=== PATIENT | male | born 1940 | race Hispanic/Latino ===

== ENCOUNTER → 2018-10-01 | Outpatient (CLI) | payer OTHER ==
[~2018-10-01] MED LIST: ASCO500T9 PO; ASPI-1197 PO; GLIP2.5T2 PO; LISI2.5T2 PO; METF-527 PO; METO-391 PO; SIMV10TA6 PO; UBID200C18 PO
== END | disposition home or self-care (01) ==
LOC: SHCH 12:43
PROVIDERS: ATTEND Internal Medicine Cardiovascular Disease
DX: I11.9 Hypertensive heart disease without heart failure (principal); Z95.0 Presence of cardiac pacemaker
CPT/HCPCS: 93306

== ENCOUNTER 2021-08-22 18:08 | Inpatient (IN) | payer OTHER ==
[~2021-08-22] VITALS: Ht 167.6 cm; Wt 69.6 kg
[~2021-08-22 18:08] MED LIST changes: +ASCO500T20 PO; -ASCO500T9 PO; +LISI2.5T13 PO; -LISI2.5T2 PO; -SIMV10TA6 PO; +SIMV10TA97 PO
[2021-08-22 18:44] LABS: BASOPHILS % (AUTO) 1.3 % (0.0-5.0); EOSINOPHILS % (AUTO) 1.1 % (0.0-8.0); HEMATOCRIT 37.5 % (42-54); LYMPHOCYTES % (AUTO) 27.5 % (21.0-51.0); MEAN CORPUSCULAR HEMOGLOBIN 29.3 pg (27.0-33.0); MEAN CORPUSCULAR HGB CONC 32.5 g/dL (32.0-36.0); MEAN CORPUSCULAR VOLUME 90.1 fL (79-99); MONOCYTES % (AUTO) 24.1 % (3.0-13.0); NEUTROPHILS % (AUTO) 45.7 % (40.0-77.0); PLATELET COUNT (AUTO) 181 K/uL (130-400); RED BLOOD CELL COUNT(AUTO) 4.16 MIL/uL (4.50-6.20); RED CELL DISTRIBUTION WIDTH 15.9 % (11.0-15.5); WHITE BLOOD COUNT (AUTO) 3.8 K/uL (4.8-10.8)
[2021-08-22 19:16] LABS: CREATININE 1.2 mg/dL (0.5-1.5); POTASSIUM 4.5 mmol/L (3.5-5.1)
[2021-08-22 19:20] LABS: ALBUMIN 3.5 g/dL (3.5-5.0); BILIRUBIN,TOTAL 0.5 mg/dL (0.2-1.0); MAGNESIUM 2.3 mg/dL (1.80-2.40); TOTAL PROTEIN, SERUM 7.3 g/dL (6.0-8.3)
[2021-08-22] MEDS: FUROSEMIDE 40MG VIAL IV SCH (20:55)
[2021-08-22] MEDS: ATORVASTATIN 40 MG TABLET PO SCH (20:55)
[2021-08-22] MEDS: APIXABAN 5 MG TABLET PO SCH (20:55)
[2021-08-23] MEDS ORDERED: ATOR40TA69 PO (02:14)
[2021-08-23] MEDS ORDERED: POTA-10 PO (02:14)
[2021-08-23] MEDS ORDERED: ASCO500T19 PO (02:14)
[2021-08-23] MEDS ORDERED: METO25TA6 PO (02:14)
[2021-08-23] MEDS ORDERED: METO-391 PO (02:14)
[2021-08-23] MEDS ORDERED: AEC81 PO (02:14)
[2021-08-23] MEDS ORDERED: UBID200C18 PO (02:14)
[2021-08-23] MEDS ORDERED: SITA100T12 PO (02:14)
[2021-08-23] MEDS ORDERED: FURO20TA4 PO (02:14)
[2021-08-23] MEDS ORDERED: CHOL100046 PO (02:14)
[2021-08-23] MEDS ORDERED: EMPA10TA PO (02:14)
[2021-08-23] MEDS ORDERED: GLIP5TAB11 PO (02:14)
[2021-08-23] MEDS ORDERED: LACT10SO5 PO (02:14)
[2021-08-23] MEDS ORDERED: APIX5TAB PO (02:14)
[2021-08-23] MEDS ORDERED: VITA1CAP85 PO (02:14)
[2021-08-23] MEDS ORDERED: VITA-164 PO (02:14)
[2021-08-23 07:41] LABS: BASOPHILS % (AUTO) 0.8 % (0.0-5.0); HEMATOCRIT 37.1 % (42-54); LYMPHOCYTES % (AUTO) 29.2 % (21.0-51.0); MEAN CORPUSCULAR HEMOGLOBIN 28.2 pg (27.0-33.0); MEAN CORPUSCULAR HGB CONC 30.5 g/dL (32.0-36.0); MEAN CORPUSCULAR VOLUME 92.5 fL (79-99); MONOCYTES % (AUTO) 28.7 % (3.0-13.0); NEUTROPHILS % (AUTO) 40.3 % (40.0-77.0); PLATELET COUNT (AUTO) 159 K/uL (130-400); RED BLOOD CELL COUNT(AUTO) 4.01 MIL/uL (4.50-6.20); RED CELL DISTRIBUTION WIDTH 16.1 % (11.0-15.5); WHITE BLOOD COUNT (AUTO) 3.8 K/uL (4.8-10.8)
[2021-08-23 07:52] LABS: ALBUMIN 3.2 g/dL (3.5-5.0); BILIRUBIN,TOTAL 0.7 mg/dL (0.2-1.0); CREATININE 1.1 mg/dL (0.5-1.5); POTASSIUM 3.7 mmol/L (3.5-5.1); TOTAL PROTEIN, SERUM 6.7 g/dL (6.0-8.3)
[2021-08-23] MEDS: APIXABAN 5 MG TABLET PO SCH ×2 (08:48→19:37)
[2021-08-23] MEDS: FUROSEMIDE 40MG VIAL IV SCH (08:48)
[2021-08-23] MEDS: POTASSIUM CHLORIDE 10MEQ SR TAB PO SCH (08:49)
[2021-08-23] MEDS: FUROSEMIDE 20MG VIAL IV SCH ×2 (09:00→19:37)
[2021-08-23] MEDS: SPIRONOLACTONE 25 MG TAB PO SCH (09:26)
[2021-08-23] MEDS: CARVEDILOL 3.125 MG TABLET PO SCH ×2 (09:27→19:37)
[2021-08-23 19:05] VITALS: BP 137/76
[2021-08-23] MEDS: ATORVASTATIN 40 MG TABLET PO SCH (19:37)
[2021-08-23] MEDS ORDERED: SACUBITRIL/VALSARTAN 1 EACH TABLET PO SCH (21:00)
[2021-08-23 23:41] VITALS: BP 139/88
[2021-08-24 05:24] VITALS: BP 119/78
[2021-08-24 06:40] LABS: CREATININE 1.1 mg/dL (0.5-1.5); MAGNESIUM 2.1 mg/dL (1.80-2.40); POTASSIUM 4.1 mmol/L (3.5-5.1); THYROID STIMULATING HORMONE 4.12 uIU/mL (0.36-3.74)
[2021-08-24 08:19] VITALS: BP 120/66
[2021-08-24] MEDS: CARVEDILOL 3.125 MG TABLET PO SCH ×2 (09:12→20:26)
[2021-08-24] MEDS: SPIRONOLACTONE 25 MG TAB PO SCH (09:12)
[2021-08-24] MEDS: POTASSIUM CHLORIDE 10MEQ SR TAB PO SCH (09:13)
[2021-08-24] MEDS: APIXABAN 5 MG TABLET PO SCH ×2 (09:13→20:25)
[2021-08-24] MEDS: FUROSEMIDE 20MG VIAL IV SCH (09:14)
[2021-08-24] MEDS ORDERED: SACUBITRIL/VALSARTAN 1 EACH TABLET PO SCH ×2 (10:30)
[2021-08-24] MEDS: SACUBITRIL/VALSARTAN 1 EACH TABLET PO SCH ×2 (10:35→20:25)
[2021-08-24 10:51] VITALS: BP 118/67
[2021-08-24 16:36] VITALS: BP 129/54
[2021-08-24] MEDS: FUROSEMIDE 40 MG TABLET PO SCH (17:25)
[2021-08-24] MEDS: ATORVASTATIN 40 MG TABLET PO SCH (20:25)
[2021-08-24 20:30] VITALS: BP 124/73
[2021-08-24 23:18] VITALS: BP 120/67
[2021-08-25 05:22] VITALS: BP 87/55
[2021-08-25 06:07] VITALS: BP 118/70
[2021-08-25 07:30] VITALS: BP 115/65
[2021-08-25] MEDS: POTASSIUM CHLORIDE 10MEQ SR TAB PO SCH (09:32)
[2021-08-25] MEDS: FUROSEMIDE 40 MG TABLET PO SCH ×2 (09:32→17:06)
[2021-08-25] MEDS: SPIRONOLACTONE 25 MG TAB PO SCH (09:32)
[2021-08-25] MEDS: SACUBITRIL/VALSARTAN 1 EACH TABLET PO SCH (09:32)
[2021-08-25] MEDS: CARVEDILOL 3.125 MG TABLET PO SCH (09:33)
[2021-08-25] MEDS: APIXABAN 5 MG TABLET PO SCH (09:33)
[2021-08-25 11:00] VITALS: BP 135/68
[2021-08-25 16:00] VITALS: BP 117/59
== END 2021-08-25 18:45 | disposition home or self-care (01) | DRG 291 ==
LOC: EDH 18:08 → EDHIP 18:09 → 3DH 08-23 18:46
PROVIDERS: ADMIT Internal Medicine; ATTEND Internal Medicine
DX: I13.0 Hypertensive heart and chronic kidney disease with heart failure and stage 1 through stage 4 chronic kidney disease, or unspecified chronic kidney disease (principal); I50.43 Acute on chronic combined systolic (congestive) and diastolic (congestive) heart failure; R18.8 Other ascites; J81.1 Chronic pulmonary edema; C16.9 Malignant neoplasm of stomach, unspecified; E11.51 Type 2 diabetes mellitus with diabetic peripheral angiopathy without gangrene; I48.0 Paroxysmal atrial fibrillation; Z20.822 Contact with and (suspected) exposure to COVID-19; D70.9 Neutropenia, unspecified; I25.10 Atherosclerotic heart disease of native coronary artery without angina pectoris; I25.5 Ischemic cardiomyopathy; E78.2 Mixed hyperlipidemia; I50.82 Biventricular heart failure; D64.9 Anemia, unspecified; N18.9 Chronic kidney disease, unspecified; E11.22 Type 2 diabetes mellitus with diabetic chronic kidney disease; R62.7 Adult failure to thrive; Z68.24 Body mass index [BMI] 24.0-24.9, adult; Z95.1 Presence of aortocoronary bypass graft; Z95.810 Presence of automatic (implantable) cardiac defibrillator; Z88.8 Allergy status to other drugs, medicaments and biological substances
CPT/HCPCS: 36415; 71045; 80048; 80053; 80061; 82948; 83735; 83880; 84443; 84484; 85025; 87635; 93005; G0378; J1940

== ENCOUNTER 2021-09-27 20:26 | Inpatient (IN) | payer OTHER ==
[~2021-09-27] VITALS: Ht 167.6 cm; Wt 79.4 kg
[~2021-09-27 20:26] MED LIST changes: +AEC81 PO; +APIX5TAB PO; +ASCO500T19 PO; -ASPI-1197 PO; +ATOR40TA69 PO; +CHOL100046 PO; +EMPA10TA PO; -GLIP2.5T2 PO; +GLIP5TAB11 PO; +LACT10SO5 PO; -LISI2.5T13 PO; -METF-527 PO; -METO-391 PO; +POTA-10 PO; -SIMV10TA97 PO; +SITA100T12 PO; +VITA-164 PO; +VITA1CAP85 PO
[2021-09-27 21:18] LABS: BASOPHILS % (AUTO) 0.4 % (0.0-5.0); HEMATOCRIT 34.2 % (42-54); LYMPHOCYTES % (AUTO) 18.3 % (21.0-51.0); MEAN CORPUSCULAR HEMOGLOBIN 28.7 pg (27.0-33.0); MEAN CORPUSCULAR VOLUME 86.8 fL (79-99); MONOCYTES % (AUTO) 1.3 % (3.0-13.0); NEUTROPHILS % (AUTO) 79.1 % (40.0-77.0); PLATELET COUNT (AUTO) 98 K/uL (130-400); RED BLOOD CELL COUNT(AUTO) 3.94 MIL/uL (4.50-6.20); RED CELL DISTRIBUTION WIDTH 15.9 % (11.0-15.5); WHITE BLOOD COUNT (AUTO) 2.3 K/uL (4.8-10.8)
[2021-09-27] MEDS ORDERED: ACETAMINOPHEN 500 MG TABLET ONE (21:24)
[2021-09-27 21:28] LABS: CARBON DIOXIDE 25 mmol/L (21-32); CHLORIDE 101 mmol/L (101-111); CREATININE 1.6 mg/dL (0.5-1.5); GLOMERULAR FILTR. RATE CALC 44 mL/min (>60); GLUCOSE,RANDOM 132 mg/dL (70-105); POTASSIUM 3.3 mmol/L (3.5-5.1); SODIUM SERUM 137 mmol/L (136-145); UREA NITROGEN, BLOOD 30 mg/dL (7-18)
[2021-09-27] MEDS ORDERED: ONDANSETRON 4MG INJ ONE (21:31)
[2021-09-27 21:32] LABS: ALANINE AMINOTRANSFERASE 301 U/L (12-78); ALBUMIN 3.1 g/dL (3.5-5.0); ASPARTATE AMINOTRANSFERASE 404 U/L (10-37); BILIRUBIN,TOTAL 4.4 mg/dL (0.2-1.0); TOTAL PROTEIN, SERUM 6.5 g/dL (6.0-8.3)
[2021-09-27 21:33] LABS: LIPASE < 50 U/L (114-286)
[2021-09-27 21:39] LABS: B-TYPE NATRIURETIC PEPTIDE 1690 pg/mL (0-100)
[2021-09-27 21:51] LABS: BAND NEUTROPHILS % (MANUAL) 30 % (0-2); LYMPHOCYTES % (MANUAL) 15 % (22-44); MONOCYTES % (MANUAL) 1 % (2-9); REACTIVE LYMPHOCYTES 2 % (0-0); SEGMENTED NEUTROPHILS % 52 % (40-70)
[2021-09-27 21:52] LABS: MAN.DIFF COMMENT-IMPRESSION MANUAL DIFFERENTIAL
[2021-09-27] MEDS ORDERED: 0.9%NACL 1000ML 1,000 ML IV ONE (22:00)
[2021-09-27] MEDS ORDERED: ONDANSETRON 4MG INJ IVP ONE (22:00)
[2021-09-27] MEDS ORDERED: ZOSYN 3.375GM +NS 50ML IV ONE (22:30)
[2021-09-27 22:36] LABS: APPEARANCE,URINE CLEAR (CLEAR); BILIRUBIN,URINE SMALL (NEGATIVE); COLOR,URINE YELLOW (YELLOW); GLUCOSE, URINE (UA) NEGATIVE (NEGATIVE); KETONES,URINE NEGATIVE (NEGATIVE); LEUKOCYTE ESTERASE ,URINE NEGATIVE (NEGATIVE); NITRATE,URINE NEGATIVE (NEGATIVE); OCCULT BLOOD,URINE TRACE-INTACT (NEGATIVE); PROTEIN,URINE 100 mg/dL (NEGATIVE)
[2021-09-27 22:46] LABS: RBC,URINE 0-1 /HPF (0-1)
[2021-09-27 22:47] LABS: BACTERIA,URINE Rare /HPF (None Seen); SQUAMOUS EPITHELIAL CELL,UR Few /HPF (0-2)
[2021-09-27 22:49] LABS: TRANSITIONAL EPI CELLS,URINE Few /HPF (None Seen)
[2021-09-28] VITALS (37 sets, daily range): BP systolic 90–136; BP diastolic 44–70
[2021-09-28] MEDS ORDERED: ACETAMINOPHEN 650 MG SUPPOSITORY RC ONE
[2021-09-28] MEDS ORDERED: VANCOMYCIN PROTOCOL PER PHARMACY IV SCH
[2021-09-28] MEDS ORDERED: IPRATROPIUM/ALBUTEROL SULFATE 3 ML SOLUTION IH PRN
[2021-09-28] MEDS ORDERED: ACETAMINOPHEN 325 MG TAB PO PRN
[2021-09-28] MEDS ORDERED: CLONIDINE HCL 0.1 MG TABLET PO PRN
[2021-09-28] MEDS ORDERED: ACETAMINOPHEN 650 MG SUPPOSITORY RC PRN
[2021-09-28] MEDS ORDERED: ONDANSETRON 4MG INJ IVP PRN
[2021-09-28] MEDS ORDERED: LACTULOSE 20 GM/30 ML UDCUP PO PRN
[2021-09-28 00:05] LABS: MAGNESIUM 1.7 mg/dL (1.80-2.40); PHOSPHORUS 1.6 mg/dL (2.5-4.9)
[2021-09-28] MEDS ORDERED: VANCOMYCIN 1G/250ML KIT 250 ML IV ONE (00:30)
[2021-09-28] MEDS: ZOSYN 3.375GM +NS 50ML IV SCH ×3 (00:50→15:43)
[2021-09-28] MEDS: LACTATED RINGERS 1000ML 1,000 ML IV SCH ×4 (00:50→20:35)
[2021-09-28] MEDS ORDERED: NOREPINEPHRIN 4MG/NS 250ML 250 ML IV ONE (02:02)
[2021-09-28 02:55] LABS: ABG HCO3 19.3 mmol/L (21.0-28.0); ABG OXYGEN SATURATION 97.2 % (95.0-99.0); ABG PCO2 29 mmHg (35-48)
[2021-09-28] MEDS ORDERED: DEXTROSE 50%-WATER 50 ML DISP.SYRIN IV ONE (02:59)
[2021-09-28] MEDS ORDERED: POTASSIUM CHLORIDE 10MEQ/100ML 100 ML IV PRN (03:00)
[2021-09-28] MEDS ORDERED: MAGNESIUM 2GM PREMIX 50ML 50 ML IV SCH (03:00)
[2021-09-28] MEDS ORDERED: POTASSIUM PHOS 15 mMOL+NS250ML 250 ML IV PRN (03:00)
[2021-09-28] MEDS ORDERED: DEXTROSE 50%-WATER 50 ML DISP.SYRIN IV PRN (03:00)
[2021-09-28] MEDS ORDERED: NOREPINEPHRINE 4MG/NS 250ML IV SCH (03:00)
[2021-09-28] MEDS ORDERED: GLUCAGON 1MG KIT 1 MG ML IM PRN (03:00)
[2021-09-28] MEDS ORDERED: POTASSIUM CHLORIDE 10% ELIXIR 20 MEQ/15 ML UDCUP PO PRN (03:00)
[2021-09-28] MEDS ORDERED: LIDOCAINE HCL-MPF 1% 2ML VIAL IV PRN ×2 (03:00)
[2021-09-28] MEDS: HYDROCORTISONE SOD SUCCINATE 100 MG/2 ML VIAL IV SCH ×4 (03:00→20:34)
[2021-09-28] MEDS ORDERED: HYDROCORTISONE SOD SUCCINATE 100 MG/2 ML VIAL IV ONE (03:00)
[2021-09-28] MEDS ORDERED: SODIUM BICARB 50MEQ 50ML VIAL IV STA (03:04)
[2021-09-28 05:29] LABS: BASOPHILS % (AUTO) 0.5 % (0.0-5.0); LYMPHOCYTES % (AUTO) 3.1 % (21.0-51.0); MEAN CORPUSCULAR HEMOGLOBIN 28.1 pg (27.0-33.0); MEAN CORPUSCULAR HGB CONC 32.6 g/dL (32.0-36.0); MEAN CORPUSCULAR VOLUME 86.1 fL (79-99); MONOCYTES % (AUTO) 1.6 % (3.0-13.0); NEUTROPHILS % (AUTO) 93.7 % (40.0-77.0); PLATELET COUNT (AUTO) 77 K/uL (130-400); RED BLOOD CELL COUNT(AUTO) 3.95 MIL/uL (4.50-6.20); RED CELL DISTRIBUTION WIDTH 16.4 % (11.0-15.5); WHITE BLOOD COUNT (AUTO) 5.5 K/uL (4.8-10.8)
[2021-09-28] MEDS: INSULIN HUMULIN R 100 UNIT/ML 3ML SQ SCH ×3 (06:00→18:00)
[2021-09-28 06:19] LABS: ALBUMIN 2.7 g/dL (3.5-5.0); BILIRUBIN,DIRECT 3.8 mg/dL (0.0-0.3); CREATININE 2.3 mg/dL (0.5-1.5); MAGNESIUM 1.6 mg/dL (1.80-2.40); PHOSPHORUS 2.9 mg/dL (2.5-4.9); POTASSIUM 3.1 mmol/L (3.5-5.1); TOTAL PROTEIN, SERUM 5.7 g/dL (6.0-8.3)
[2021-09-28] MEDS: DEXTROSE 10%-WATER 1,000 ML IV SCH (06:37)
[2021-09-28 07:03] LABS: ABG BASE EXCESS -3.8 mmol/L (-2.0-3.0); ABG HCO3 21.1 mmol/L (21.0-28.0); ABG OXYGEN SATURATION 97.5 % (95.0-99.0); ABG PCO2 38 mmHg (35-48)
[2021-09-28] MEDS: POTASSIUM CHLORIDE 10MEQ/100ML 100 ML IV PRN ×2 (08:37→15:43)
[2021-09-28] MEDS: POLYETHYLENE GLYCOL 3350 17 GM POWD.PACK PO SCH (08:38)
[2021-09-28] MEDS: ENOXAPARIN SODIUM 40 MG/0.4 ML SYRINGE SQ SCH (08:38)
[2021-09-28] MEDS: PANTOPRAZOLE 40 MG TAB DR PO SCH (08:38)
[2021-09-28] MEDS ORDERED: FURO20TA4 PO (11:21)
[2021-09-28] MEDS ORDERED: LISI5TAB21 PO (11:21)
[2021-09-28] MEDS ORDERED: CARV3.12 PO (11:21)
[2021-09-28] MEDS: VANCOMYCIN 1G/250ML KIT 250 ML IV SCH (20:22)
[2021-09-29] VITALS (22 sets, daily range): BP systolic 92–120; BP diastolic 47–65
[2021-09-29] MEDS: ZOSYN 3.375GM +NS 50ML IV SCH ×3 (00:26→17:16)
[2021-09-29] MEDS: DEXTROSE 10%-WATER 1,000 ML IV SCH (00:27)
[2021-09-29] MEDS: HYDROCORTISONE SOD SUCCINATE 100 MG/2 ML VIAL IV SCH ×4 (03:41→21:44)
[2021-09-29 03:49] LABS: HEMATOCRIT 31.6 % (42-54); MEAN CORPUSCULAR HEMOGLOBIN 28.7 pg (27.0-33.0); MEAN CORPUSCULAR HGB CONC 33.5 g/dL (32.0-36.0); MEAN CORPUSCULAR VOLUME 85.6 fL (79-99); PLATELET COUNT (AUTO) 47 K/uL (130-400); RED BLOOD CELL COUNT(AUTO) 3.69 MIL/uL (4.50-6.20); RED CELL DISTRIBUTION WIDTH 16.5 % (11.0-15.5); WHITE BLOOD COUNT (AUTO) 12.3 K/uL (4.8-10.8)
[2021-09-29 04:02] LABS: CREATININE 2.5 mg/dL (0.5-1.5); POTASSIUM 4.3 mmol/L (3.5-5.1)
[2021-09-29] MEDS: INSULIN HUMULIN R 100 UNIT/ML 3ML SQ SCH ×4 (05:55→17:19)
[2021-09-29] MEDS: LACTATED RINGERS 1000ML 1,000 ML IV SCH ×2 (08:00→17:17)
[2021-09-29] MEDS: POLYETHYLENE GLYCOL 3350 17 GM POWD.PACK PO SCH ×2 (08:45→09:00)
[2021-09-29] MEDS: PANTOPRAZOLE 40 MG TAB DR PO SCH (08:45)
[2021-09-29] MEDS: ENOXAPARIN SODIUM 40 MG/0.4 ML SYRINGE SQ SCH (08:54)
[2021-09-29] MEDS: VANCOMYCIN 1G/250ML KIT 250 ML IV SCH (21:45)
[2021-09-30] MEDS: ZOSYN 3.375GM +NS 50ML IV SCH ×4 (01:02→23:56)
[2021-09-30 03:33] VITALS: BP 104/56
[2021-09-30] MEDS: HYDROCORTISONE SOD SUCCINATE 100 MG/2 ML VIAL IV SCH ×4 (04:29→21:48)
[2021-09-30] MEDS ORDERED: LORAZEPAM 1 MG TABLET ONE (04:37)
[2021-09-30 05:39] LABS: BASOPHILS % (AUTO) 0.6 % (0.0-5.0); HEMATOCRIT 34.7 % (42-54); LYMPHOCYTES % (AUTO) 3.5 % (21.0-51.0); MEAN CORPUSCULAR HEMOGLOBIN 28.1 pg (27.0-33.0); MEAN CORPUSCULAR HGB CONC 33.1 g/dL (32.0-36.0); MEAN CORPUSCULAR VOLUME 84.8 fL (79-99); MONOCYTES % (AUTO) 4.9 % (3.0-13.0); PLATELET COUNT (AUTO) 52 K/uL (130-400); RED BLOOD CELL COUNT(AUTO) 4.09 MIL/uL (4.50-6.20); RED CELL DISTRIBUTION WIDTH 16.7 % (11.0-15.5); WHITE BLOOD COUNT (AUTO) 10.8 K/uL (4.8-10.8)
[2021-09-30 05:49] LABS: CARBON DIOXIDE 23 mmol/L (21-32); CHLORIDE 102 mmol/L (101-111); CREATININE 2.5 mg/dL (0.5-1.5); GLOMERULAR FILTR. RATE CALC 27 mL/min (>60); GLUCOSE,RANDOM 183 mg/dL (70-105); POTASSIUM 3.5 mmol/L (3.5-5.1); SODIUM SERUM 137 mmol/L (136-145); UREA NITROGEN, BLOOD 48 mg/dL (7-18)
[2021-09-30 06:01] LABS: ALANINE AMINOTRANSFERASE 132 U/L (12-78); ALBUMIN 1.9 g/dL (3.5-5.0); ASPARTATE AMINOTRANSFERASE 86 U/L (10-37); BILIRUBIN,TOTAL 4.7 mg/dL (0.2-1.0); THYROID STIMULATING HORMONE 1.92 uIU/mL (0.36-3.74); TOTAL PROTEIN, SERUM 5.2 g/dL (6.0-8.3)
[2021-09-30 06:02] LABS: AMMONIA < 10 umol/L (11-32)
[2021-09-30] MEDS: INSULIN HUMULIN R 100 UNIT/ML 3ML SQ SCH ×5 (07:30→21:49)
[2021-09-30 08:06] VITALS: BP 102/57
[2021-09-30] MEDS: ENOXAPARIN SODIUM 40 MG/0.4 ML SYRINGE SQ SCH (09:00)
[2021-09-30] MEDS: PANTOPRAZOLE 40 MG TAB DR PO SCH (10:21)
[2021-09-30] MEDS: POLYETHYLENE GLYCOL 3350 17 GM POWD.PACK PO SCH (10:21)
[2021-09-30] MEDS: LACTATED RINGERS 1000ML 1,000 ML IV SCH ×3 (10:23→16:00)
[2021-09-30 11:11] VITALS: BP 104/56
[2021-09-30 16:15] VITALS: BP 112/52
[2021-09-30 19:35] VITALS: BP 115/59
[2021-09-30] MEDS ORDERED: VANCOMYCIN 750MG 750 MG in 0.9% NACL 250ML 250 ML IVPB SCH (20:00)
[2021-09-30] MEDS ORDERED: VANCOMYCIN 750MG VIAL IVPB SCH (20:00)
[2021-09-30 23:21] VITALS: BP 133/75
[2021-10-01] MEDS: HYDROCORTISONE SOD SUCCINATE 100 MG/2 ML VIAL IV SCH ×4 (02:46→21:58)
[2021-10-01 03:01] VITALS: BP 84/57
[2021-10-01 04:20] LABS: BASOPHILS % (AUTO) 0.2 % (0.0-5.0); HEMATOCRIT 32.6 % (42-54); MEAN CORPUSCULAR HEMOGLOBIN 28.2 pg (27.0-33.0); MEAN CORPUSCULAR VOLUME 82.7 fL (79-99); MONOCYTES % (AUTO) 7.3 % (3.0-13.0); NEUTROPHILS % (AUTO) 86.1 % (40.0-77.0); NUCLEATED RED BLOOD CELLS 0.4 % (0.0-0.19); PLATELET COUNT (AUTO) 45 K/uL (130-400); RED BLOOD CELL COUNT(AUTO) 3.94 MIL/uL (4.50-6.20); RED CELL DISTRIBUTION WIDTH 16.1 % (11.0-15.5); WHITE BLOOD COUNT (AUTO) 11.3 K/uL (4.8-10.8)
[2021-10-01 04:40] LABS: ALBUMIN 1.7 g/dL (3.5-5.0); BILIRUBIN,TOTAL 2.6 mg/dL (0.2-1.0); CREATININE 2.7 mg/dL (0.5-1.5); POTASSIUM 3.3 mmol/L (3.5-5.1); TOTAL PROTEIN, SERUM 4.8 g/dL (6.0-8.3)
[2021-10-01] MEDS: INSULIN HUMULIN R 100 UNIT/ML 3ML SQ SCH ×4 (07:30→22:07)
[2021-10-01 08:00] VITALS: BP 107/48
[2021-10-01] MEDS: ZOSYN 3.375GM +NS 50ML IV SCH ×2 (08:00→15:33)
[2021-10-01] MEDS: PANTOPRAZOLE 40 MG TAB DR PO SCH (09:00)
[2021-10-01] MEDS: POLYETHYLENE GLYCOL 3350 17 GM POWD.PACK PO SCH (11:06)
[2021-10-01] MEDS: ENOXAPARIN SODIUM 40 MG/0.4 ML SYRINGE SQ SCH (11:08)
[2021-10-01 11:34] VITALS: BP 111/47
[2021-10-01] MEDS: KCL 20 MEQ ERTAB PO PRN (16:09)
[2021-10-01 16:31] VITALS: BP 141/67
[2021-10-01] MEDS ORDERED: BENZONATATE 100 MG CAPSULE PO PRN (20:00)
[2021-10-01 20:16] VITALS: BP 130/59
[2021-10-01 23:23] VITALS: BP 138/63
[2021-10-02] VITALS (7 sets, daily range): BP systolic 122–142; BP diastolic 62–85
[2021-10-02] MEDS: ZOSYN 3.375GM +NS 50ML IV SCH ×4 (00:59→23:09)
[2021-10-02] MEDS: HYDROCORTISONE SOD SUCCINATE 100 MG/2 ML VIAL IV SCH ×4 (03:00→23:10)
[2021-10-02 04:35] LABS: HEMATOCRIT 32.9 % (42-54); MEAN CORPUSCULAR HEMOGLOBIN 27.8 pg (27.0-33.0); MEAN CORPUSCULAR HGB CONC 33.7 g/dL (32.0-36.0); MEAN CORPUSCULAR VOLUME 82.5 fL (79-99); NUCLEATED RED BLOOD CELLS 0.7 % (0.0-0.19); PLATELET COUNT (AUTO) 58 K/uL (130-400); RED BLOOD CELL COUNT(AUTO) 3.99 MIL/uL (4.50-6.20); RED CELL DISTRIBUTION WIDTH 16.5 % (11.0-15.5); WHITE BLOOD COUNT (AUTO) 8.6 K/uL (4.8-10.8)
[2021-10-02 04:47] LABS: CREATININE 2.9 mg/dL (0.5-1.5); POTASSIUM 3.6 mmol/L (3.5-5.1)
[2021-10-02] MEDS: INSULIN HUMULIN R 100 UNIT/ML 3ML SQ SCH ×4 (07:42→20:16)
[2021-10-02] MEDS: POLYETHYLENE GLYCOL 3350 17 GM POWD.PACK PO SCH (10:30)
[2021-10-02] MEDS: PANTOPRAZOLE 40 MG TAB DR PO SCH (10:30)
[2021-10-02] MEDS: GUAIFENESIN-DM 200/20 MG 10 ML PO PRN (15:32)
[2021-10-03 04:17] VITALS: BP 131/63
[2021-10-03 04:59] LABS: HEMATOCRIT 32.8 % (42-54); MEAN CORPUSCULAR HEMOGLOBIN 28.6 pg (27.0-33.0); MEAN CORPUSCULAR HGB CONC 34.8 g/dL (32.0-36.0); MEAN CORPUSCULAR VOLUME 82.2 fL (79-99); NUCLEATED RED BLOOD CELLS 0.6 % (0.0-0.19); PLATELET COUNT (AUTO) 62 K/uL (130-400); RED BLOOD CELL COUNT(AUTO) 3.99 MIL/uL (4.50-6.20); RED CELL DISTRIBUTION WIDTH 16.3 % (11.0-15.5)
[2021-10-03 05:15] LABS: CREATININE 2.9 mg/dL (0.5-1.5); POTASSIUM 3.3 mmol/L (3.5-5.1)
[2021-10-03] MEDS: KCL 20 MEQ ERTAB PO PRN ×3 (05:53→10:30)
[2021-10-03] MEDS: INSULIN HUMULIN R 100 UNIT/ML 3ML SQ SCH ×4 (06:05→20:58)
[2021-10-03] MEDS: HYDROCORTISONE SOD SUCCINATE 100 MG/2 ML VIAL IV SCH (06:06)
[2021-10-03 07:30] VITALS: BP 124/63
[2021-10-03] MEDS: PANTOPRAZOLE 40 MG TAB DR PO SCH (10:20)
[2021-10-03] MEDS: GUAIFENESIN-DM 200/20 MG 10 ML PO PRN (10:20)
[2021-10-03] MEDS: POLYETHYLENE GLYCOL 3350 17 GM POWD.PACK PO SCH (10:20)
[2021-10-03] MEDS: ZOSYN 3.375GM +NS 50ML IV SCH (10:20)
[2021-10-03 11:00] VITALS: BP 128/60
[2021-10-03] MEDS: CEFTRIAXONE 1G VIAL IVP SCH (14:00)
[2021-10-03] MEDS: 0.9%NACL 1000ML 1,000 ML IV SCH (14:00)
[2021-10-03 14:32] LABS: % IRON SATURATION 37.8 % (30-44)
[2021-10-03 16:00] VITALS: BP 135/67
[2021-10-03 19:00] VITALS: BP 109/64
[2021-10-03] MEDS ORDERED: ZOSYN 3.375GM +NS 50ML IV SCH (21:00)
[2021-10-04] VITALS: BP 146/58
[2021-10-04 04:00] VITALS: BP 130/58
[2021-10-04 04:21] LABS: BASOPHILS % (AUTO) 0.9 % (0.0-5.0); EOSINOPHILS % (AUTO) 0.1 % (0.0-8.0); HEMATOCRIT 34.2 % (42-54); LYMPHOCYTES % (AUTO) 11.4 % (21.0-51.0); MEAN CORPUSCULAR HEMOGLOBIN 28.2 pg (27.0-33.0); MEAN CORPUSCULAR HGB CONC 33.9 g/dL (32.0-36.0); MONOCYTES % (AUTO) 22.3 % (3.0-13.0); NEUTROPHILS % (AUTO) 58.9 % (40.0-77.0); NUCLEATED RED BLOOD CELLS 0.9 % (0.0-0.19); PLATELET COUNT (AUTO) 103 K/uL (130-400); RED BLOOD CELL COUNT(AUTO) 4.12 MIL/uL (4.50-6.20); WHITE BLOOD COUNT (AUTO) 9.1 K/uL (4.8-10.8)
[2021-10-04 04:41] LABS: ALBUMIN 1.9 g/dL (3.5-5.0); BILIRUBIN,TOTAL 1.3 mg/dL (0.2-1.0); CREATININE 2.5 mg/dL (0.5-1.5); POTASSIUM 3.1 mmol/L (3.5-5.1); TOTAL PROTEIN, SERUM 5.2 g/dL (6.0-8.3)
[2021-10-04 05:20] LABS: APPEARANCE,URINE CLEAR (CLEAR); BILIRUBIN,URINE NEGATIVE (NEGATIVE); COLOR,URINE YELLOW (YELLOW); GLUCOSE, URINE (UA) NEGATIVE (NEGATIVE); KETONES,URINE NEGATIVE (NEGATIVE); LEUKOCYTE ESTERASE ,URINE NEGATIVE (NEGATIVE); NITRATE,URINE NEGATIVE (NEGATIVE); OCCULT BLOOD,URINE SMALL (NEGATIVE); PROTEIN,URINE NEGATIVE (NEGATIVE); UROBILINOGEN,URINE 0.2 mg/dL (0.2-1.0)
[2021-10-04 05:45] LABS: BACTERIA,URINE Few /HPF (None Seen); SQUAMOUS EPITHELIAL CELL,UR 0-2 /HPF (0-2); WBC,URINE 0-1 /HPF (0-1)
[2021-10-04] MEDS: 0.9%NACL 1000ML 1,000 ML IV SCH (05:54)
[2021-10-04 05:55] LABS: CHLORIDE,URINE RANDOM 26 mmol/L (110-250); POTASSIUM,URINE RANDOM 13 mmol/L (25-125); SODIUM,URINE RANDOM 14 mmol/l (40-220)
[2021-10-04] MEDS: INSULIN HUMULIN R 100 UNIT/ML 3ML SQ SCH ×4 (05:55→20:36)
[2021-10-04] MEDS: KCL 20 MEQ ERTAB PO PRN ×3 (05:55→20:29)
[2021-10-04 08:00] VITALS: BP 126/72
[2021-10-04 11:00] VITALS: BP 132/61
[2021-10-04] MEDS: POLYETHYLENE GLYCOL 3350 17 GM POWD.PACK PO SCH (11:51)
[2021-10-04] MEDS: Vitamin B Complex/Vit C/Folic Acid PO SCH (11:51)
[2021-10-04] MEDS: PANTOPRAZOLE 40 MG TAB DR PO SCH (11:51)
[2021-10-04] MEDS: CEFTRIAXONE 1G VIAL IVP SCH (15:19)
[2021-10-04 16:00] VITALS: BP 143/91
[2021-10-04 19:00] VITALS: BP 140/64
[2021-10-05] VITALS: BP 132/66
[2021-10-05 03:44] LABS: HEMATOCRIT 33.1 % (42-54); MEAN CORPUSCULAR HEMOGLOBIN 28.4 pg (27.0-33.0); MEAN CORPUSCULAR HGB CONC 34.1 g/dL (32.0-36.0); MEAN CORPUSCULAR VOLUME 83.2 fL (79-99); NUCLEATED RED BLOOD CELLS 0.6 % (0.0-0.19); PLATELET COUNT (AUTO) 127 K/uL (130-400); RED BLOOD CELL COUNT(AUTO) 3.98 MIL/uL (4.50-6.20); RED CELL DISTRIBUTION WIDTH 17.7 % (11.0-15.5); WHITE BLOOD COUNT (AUTO) 8.8 K/uL (4.8-10.8)
[2021-10-05 03:53] LABS: CREATININE 2.1 mg/dL (0.5-1.5); MAGNESIUM 2.1 mg/dL (1.80-2.40); POTASSIUM 4.2 mmol/L (3.5-5.1)
[2021-10-05 04:00] VITALS: BP 149/64
[2021-10-05 04:18] LABS: BAND NEUTROPHILS % (MANUAL) 1 % (0-2); EOSINOPHILS % (MANUAL) 1 % (1-6); LYMPHOCYTES % (MANUAL) 17 % (22-44); MAN.DIFF COMMENT-IMPRESSION MANUAL DIFFERENTIAL; MONOCYTES % (MANUAL) 13 % (2-9); SEGMENTED NEUTROPHILS % 68 % (40-70)
[2021-10-05] MEDS: INSULIN HUMULIN R 100 UNIT/ML 3ML SQ SCH ×3 (05:55→17:14)
[2021-10-05 07:30] VITALS: BP 136/66
[2021-10-05] MEDS: POLYETHYLENE GLYCOL 3350 17 GM POWD.PACK PO SCH (09:00)
[2021-10-05] MEDS: Vitamin B Complex/Vit C/Folic Acid PO SCH (10:02)
[2021-10-05] MEDS: PANTOPRAZOLE 40 MG TAB DR PO SCH (10:02)
[2021-10-05 11:00] VITALS: BP 144/75
[2021-10-05] MEDS ORDERED: AMOX/CLAV 500/125MG TAB PO SCH (13:30)
[2021-10-05 16:00] VITALS: BP 137/82
== END 2021-10-05 16:50 | DRG 871 ==
LOC: EDH 20:26 → EDHIP 23:34 → 2BH 09-28 04:17 → 4CH 09-29 18:19
PROVIDERS: ADMIT Internal Medicine Critical Care Medicine; ATTEND Internal Medicine Critical Care Medicine
DX: A41.9 Sepsis, unspecified organism (principal); I21.4 Non-ST elevation (NSTEMI) myocardial infarction; R65.21 Severe sepsis with septic shock; C16.9 Malignant neoplasm of stomach, unspecified; N17.9 Acute kidney failure, unspecified; I13.0 Hypertensive heart and chronic kidney disease with heart failure and stage 1 through stage 4 chronic kidney disease, or unspecified chronic kidney disease; I42.9 Cardiomyopathy, unspecified; I48.20 Chronic atrial fibrillation, unspecified; I50.22 Chronic systolic (congestive) heart failure; R18.8 Other ascites; D84.9 Immunodeficiency, unspecified; Z66 Do not resuscitate; D64.9 Anemia, unspecified; D69.6 Thrombocytopenia, unspecified; E11.649 Type 2 diabetes mellitus with hypoglycemia without coma; B96.89 Other specified bacterial agents as the cause of diseases classified elsewhere; N18.9 Chronic kidney disease, unspecified; E11.22 Type 2 diabetes mellitus with diabetic chronic kidney disease; K59.00 Constipation, unspecified; Z20.822 Contact with and (suspected) exposure to COVID-19; B96.1 Klebsiella pneumoniae [K. pneumoniae] as the cause of diseases classified elsewhere; E78.5 Hyperlipidemia, unspecified; E86.0 Dehydration; I25.10 Atherosclerotic heart disease of native coronary artery without angina pectoris; N50.89 Other specified disorders of the male genital organs; R62.7 Adult failure to thrive; E87.8 Other disorders of electrolyte and fluid balance, not elsewhere classified; R74.02 Elevation of levels of lactic acid dehydrogenase [LDH]; Z74.01 Bed confinement status; Z68.28 Body mass index [BMI] 28.0-28.9, adult; Z79.01 Long term (current) use of anticoagulants; Z79.82 Long term (current) use of aspirin; Z79.84 Long term (current) use of oral hypoglycemic drugs; Z79.899 Other long term (current) drug therapy; Z95.1 Presence of aortocoronary bypass graft; Z95.810 Presence of automatic (implantable) cardiac defibrillator; Z82.3 Family history of stroke; Z83.3 Family history of diabetes mellitus; Z82.5 Family history of asthma and other chronic lower respiratory diseases; Z82.0 Family history of epilepsy and other diseases of the nervous system; Z82.49 Family history of ischemic heart disease and other diseases of the circulatory system
CPT/HCPCS: 36415; 36600; 70450; 71045; 74176; 76770; 76870; 80048; 80051; 80053; 80076; 80190; 80202; 81001; 82140; 82435; 82550; 82803; 82947; 82948; 83540; 83550; 83605; 83690; 83735; 83874; 83880; 84100; 84132; 84145; 84295; 84443; 84484; 85018; 85025; 85027; 86140; 87040; 87077; 87088; 87186; 87635; 87804; 93005; 93306; 93356; 93971; 97039; 99291; C9803; G0378; J0696; J1650; J1720; J1815; J2405; J2543; J3370; J3490; J7030; J7050; J7070; J7120